=== PATIENT | male | born 1965 | race Caucasian/White ===

== ENCOUNTER 2018-07-30 06:37 | Day surgery (SDC) | payer OTHER, SELFPAY ==
[2018-07-05 12:43] VITALS: BMI 36.6
--- NOTE | 2018-07-05 12:56 | HP_ITS ---
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 Is patient in pain?: No Allergies No Known Allergies Allergy (Verified 07/05/18 12:42) Medications Cetirizine HCl [Zyrtec] 5 mg PO DAILY 09/30/14 [History Confirmed 07/05/18] naproxen sodium 220 mg capsule 220 mg PO BID PRN 07/05/18 [History Confirmed 07/05/18] PFSH Medical History Arthritis (Acute) Status post vasectomy (Acute) Family History Mother Diabetes Hypertension Thyroid disorder Social History Smoking Status: Never smoker alcohol intake: current alcohol intake frequency: a few times a month HPI HPI HPI: BEATRIZ FLOWER, is a 52 M who presents to the office today for HPI HPI Surgical H&P: Yes HPI: BEATRIZ FLOWER, is a 52 M who presents to the office today for evaluation of rectal bleeding. But a month ago patient was having constipating stools started to develop some rectal bleeding added some fiber to his diet and has since had no further rectal bleeding at the time he did notice a lump but that has really dissipated and had it was nontender in nature. Patient had a colonoscopy back in [address] [facility] [address] Karma perez he was having rectal bleeding at that time no surgical treatment was entertained. And he has not been needing any Anusol HC suppositories. He has an aunt with colon cancer and his mom has had colon polyps. In addition the patient has had a lump on his left scapular area that is gradually increasing in size and is uncomfortable when he sits back on high back chairs. It is never been infected and he is never had any surgery on it. ROS General General: No weight change, appetite, fatigue, colon cancer, breast cancer or weakness HEENT HEENT: No difficulty swallowing, eye injury, eye surgery, swollen glands or hoarseness Endo Endocrine: No thyroid disease, diabetes mellitus, thyroid cancer, Hair loss, heat intolerance or cold intolerance Skin Skin: No rash or changing moles Breast Breast: No left breast lump, right breast lump, nipple discharge, breast pain, abnormal mammogram, abnormal US or breast enlargement Musc Musculoskeletal: Yes back problems, arthritis and rheumatoid arthritis; no gout or joint pain Cardio Cardiovascular: No murmur, pacemaker, heart disease, atrial fibrillation, high blood pressure, heart attack, heart stent, palpitations, shortness of breat with exertion or chest pain Psych Psychiatric: No depression, anxiety or hearing voices Resp Respiratory: No shortness of breath, Yes sleep apnea, No cough, No COPD, No asthma, No emphysema, No wheezing Gastro Gastrointestinal: No abdominal pain, No nausea or vomiting, No diarrhea, No constipation, Yes blood in stool, No acid reflux, Yes hemorrhoids, No ulcers, No gallbladder problem, No black,tarry stools Rafael Hematologic: No blood thinners, No blood disorders, No bleeding, No anemia, No blood clots Neuro Neurologic: No system reviewed and no additional complaints, except as docu, No as per HPI, No abnormal walking, No abnormal hearing, No abnormal movements, No abnormal speech, No behavioral changes, No burning sensations, No confusion, No seizure-like activity, No unsteadiness, No dizziness, No localized weakness, No frequent falls, No headache(s), No lack of coordination, No loss of vision, No memory loss, No numbness, No other visual disturbances, No radiating pain, No restless legs, No sensory deficit, No fainting, No tingling, No tremor(s), No weakness, No other Exam Const General: no acute distress, well developed, well hydrated Orientation: oriented to person, oriented to place, oriented to time [facility] Head: normocephalic, atraumatic Ears: external ears normal Mouth: moist mucous membranes Eyes Sclera: sclerae normal Pupils: normal by confrontation Neck Neck: no lymphadenopathy noted Neck mass: No Thyroid: thyroid normal, symmetrical Chest Chest palpation & inspection: normal inspection of the chest Breast Palpation: No nipple discharge Resp Effort & Inspection: normal respiratory effort Auscultation: clear to auscultation bilaterally Percussion: percussion normal Cardio Rate: regular rate Rhythm: regular rhythm Heart Sounds: no murmurs GI Palpation: soft, no hepatosplenomegaly, no masses, nontender Rectal Exam: other Other: Rectal exam deferred. Skin Other: Left upper back on the scapular blade is a 2-1/2 cm subcutaneous lesion most likely consistent with a sebaceous cyst. There is no cellulitis and there is no signs of infection Extrem General: normal to inspection, no clubbing, cyanosis or edema Assessment & Plan Problems 1. Rectal bleeding K62.5 2. Lesion of subcutaneous tissue L98.9 Plan I have discussed the above with the patient. I have offered the patient colonoscopy for evaluation. I have explained the risks/benefits of the procedure and described the procedure. I have discussed the risks with the patient, including but not limited to: infection, bleeding, perforation of the GI tract requiring emergency surgery, inability to complete the procedure, injury to any internal organs, complications of anesthesia, etc. - the patient understands and agrees to proceed. I have answered all the patient's questions to the patient's satisfaction and the patient has no further questions. The patient has been given instructions for the colon cleansing preparation. At a later date I will remove the subcutaneous lesion of his shoulder in the office. Risk benefits to include bleeding infection have been reviewed and the patient does agree to proceed Coding Level of Care Code Off vis,new,level 3 Diagnoses Rectal bleeding K62.5 Lesion of subcutaneous tissue L98.9 07/05/18 1257 <Electronically signed by Maksim yates MD> Date _ Maksim Nuñez MD I have re-examined the patient. There are no clinical changes since date of exam.
[2018-07-30 06:53] VITALS: BP 152/87; PULSE 79; RESP 16; TEMP 36.5; O2SAT 100; BMI 34.2
[2018-07-30 08:15] VITALS: BP 115/85; BP 152/87; PULSE 78; RESP 16; TEMP 36.5; O2SAT 96
--- NOTE | 2018-07-30 08:16 | OP.ENDO_ITS ---
07/30/2018 James Pugh Re : Colonoscopy procedure for Irvin Dai Dear Lexy This procedure was performed on Monday, July 30, 2018. My impressions and recommendations are as follows: Impressions : - Non-bleeding internal hemorrhoids. No specimens collected. - The examination was otherwise normal. - The examined portion of the ileum was normal. Recommendations : - Discharge patient to home. - Resume previous diet. - Continue present medications. - Repeat colonoscopy in 10 years for screening purposes. - Return to my office in 1 week. My findings are described in the full procedure note, which is enclosed. If I can be of further assistance, please feel free to contact me at Doctor phone number(s): , Fax: [phone], Work: . Sincerely, MD Maksim Grace MD 07/30/2018 8:15:52 AM This report has been signed electronically.
[2018-07-30 08:20] VITALS: BP 126/93; BP 152/87; PULSE 73; RESP 16; O2SAT 96
[2018-07-30 08:25] VITALS: BP 118/95; BP 152/87; PULSE 75; RESP 16; O2SAT 97
[2018-07-30 08:30] VITALS: BP 141/94; BP 152/87; PULSE 74; RESP 16; TEMP 36.1; O2SAT 95
[2018-07-30 08:36] VITALS: BP 152/87
== END 2018-07-30 08:49 | disposition home or self-care (01) ==
LOC: EN 06:37 → AC 06:38
PROVIDERS: Visit Provider Surgery
PROC: 0DJD8ZZ Inspection of Lower Intestinal Tract, Via Natural or Artificial Opening Endoscopic (ICD-10-PCS; CPT 45378; principal; 2018-07-30 07:55)
DX: K62.5 Hemorrhage of anus and rectum (principal); K64.8 Other hemorrhoids; L98.9 Disorder of the skin and subcutaneous tissue, unspecified; M06.9 Rheumatoid arthritis, unspecified; M79.602 Pain in left arm; Z83.71 Family history of colonic polyps; Z80.0 Family history of malignant neoplasm of digestive organs
CPT/HCPCS: 45378; J7120